=== PATIENT | female | born 1995 | race Two or more races ===

== ENCOUNTER 2022-11-05 09:12 | Emergency (ER) | payer MEDICAID, OTHER ==
[~2022-11-05] VITALS: Ht 162.6 cm; Wt 77.0 kg
[2022-11-05 09:47] VITALS: BP 138/89
[2022-11-05] MEDS ORDERED: ACETAMINOPHEN 500 MG TAB PO ONE (10:00)
[2022-11-05] MEDS ORDERED: SILV1CRE82 TOP (10:30)
[2022-11-05] MEDS ORDERED: IBUP-1456 PO (10:30)
== END 2022-11-05 10:38 | disposition home or self-care (01) ==
LOC: ER 09:12
DX: S63.602A Unspecified sprain of left thumb, initial encounter (principal); T24.111A Burn of first degree of right thigh, initial encounter; Z88.6 Allergy status to analgesic agent; V43.52XA Car driver injured in collision with other type car in traffic accident, initial encounter; Y93.89 Activity, other specified; Y92.89 Other specified places as the place of occurrence of the external cause; Y99.8 Other external cause status
CPT/HCPCS: 73130